=== PATIENT | female | born 1940 | race Native Hawaiian/Other Pacific Islander ===

== ENCOUNTER 2017-06-21 11:38 | Observation (INO) | payer OTHER, MEDICARE ==
[~2017-06-21] VITALS: Ht 154.9 cm; Wt 88.2 kg
[~2017-06-21 11:38] MED LIST: ADIPEX-P37.5 M1 PO; ALPHAGAN P0.1 % OP; ALPR0.5T24 PO; ASA LOW DOSE81 MG PO; CALCIUM + D600 MG PO; CLONIDINE0.2 MG PO; COZAAR100 MG PO; FEXO180T PO; FURO40TA93 PO; GABA400C2 PO; HYDROCOD PO; IBU PO; ISOSORB DIN30 MG OR; LABETALOL200 MG PO; LEVOTHYROXIN50 MCG PO; MICRO-K10 MEQ PO; MOBIC15 MG PO; NITR0.4S2 SL; OMEPRAZOLE20 M1 PO; PERSANTINE50 MG PO; RESTORIL15 MG PO; SERINE PO; SERT50TA PO; SIMV40TA57 PO; SYNTHROID50 MCG PO; TRAVATAN Z0.004 % OP; VENTOLIN HFA IN; XANAX0.5 MG PO; ZOCOR40 MG OR
[2017-06-21 13:01] LABS: POTASSIUM 3.1 mmol/L (3.6-5.2); SODIUM 136 mmol/L (136-145)
[2017-06-21 13:37] LABS: PARTIAL THROMBOPLASTIN TIME 26.8 SECONDS (24.5-33.6)
[2017-06-21 13:40] VITALS: BP 165/71; TEMP 97.6; Ht 154.9 cm; Wt 88.2 kg
[2017-06-21 16:00] VITALS: BP 130/49; TEMP 98.4
[2017-06-21 17:28] LABS: PLATELET COUNT 166 K/uL (152-353)
[2017-06-21 20:00] VITALS: BP 129/50; TEMP 97.5
[2017-06-22] VITALS: BP 138/50; TEMP 98.2
[2017-06-22 04:00] VITALS: BP 143/45; TEMP 98.3
[2017-06-22 05:38] LABS: PLATELET COUNT 167 K/uL (152-353)
[2017-06-22 05:44] LABS: POTASSIUM 3.3 mmol/L (3.6-5.2)
[2017-06-22 08:00] VITALS: BP 183/64; TEMP 97.9
[2017-06-22 12:00] VITALS: BP 147/66; TEMP 98.1
== END 2017-06-22 14:35 | disposition home or self-care (01) ==
LOC: MED/SURG 11:38
PROVIDERS: ADMIT Family Medicine
DX: R07.89 Other chest pain (principal); R00.1 Bradycardia, unspecified; I10 Essential (primary) hypertension; E87.6 Hypokalemia
CPT/HCPCS: 36415; 36591; 80053; 82550; 82553; 83735; 84484; 85027; 85610; 85730; 93005; 96372; 99220; G0378; G0379; J1650